=== PATIENT | male | born 1955 | race Caucasian/White ===

== ENCOUNTER 2016-07-19 11:10 | Inpatient (IN) | payer OTHER ==
[~2016-07-19 11:10] MED LIST: INSULIN LISPRO (humaLOG) 300 UNIT/3 ML VIAL SQ ONE
[2016-07-19] MEDS ORDERED: methylPREDNISolone SOD SUCCI 125 MG/2 ML VIAL IV STA (11:30)
[2016-07-19] MEDS ORDERED: IPRATROPIUM 0.5 MG/2.5 ML NEBU INHALATION STA (11:30)
[2016-07-19] MEDS ORDERED: LEVALBUTEROL NEB 1.25 MG/3 ML AMP INHALATION STA (11:30)
--- NOTE | 2016-07-19 11:41 | ED ---
General Adult HPI - General Chief complaint: Shortness of Breath Stated complaint: Difficulty Breathing Time Seen by Provider: 07/19/16 11:15 Source: EMS, RN notes reviewed Mode of arrival: EMS Limitations: no limitations - History of Present Illness Initial comments: This is a 61-year-old male presents emergency department with past medical history significant for COPD. Patient states he was diagnosed with pneumonia a few weeks ago he has been treated for at home and he is no longer on any antibiotics. Patient states this morning he started having difficulty breathing coughing quite a bit. Patient states she can hear himself wheezing and he believes is an exacerbation of his COPD. Patient denies any chest pain or palpitations. Patient denies any fever or chills. Patient denies any lightheadedness dizziness or near syncopal episode. Patient denies headache patient denies any numbness weakness. Patient denies abdominal pain patient denies nausea vomiting diarrhea per patient denies any back pain. Patient denies dysuria hematuria urinary frequency. Patient denies any recent injury or trauma. - Related Data Home Medications Medication Instructions Recorded Confirmed ALPRAZolam [Xanax] 2 mg PO HS 10/19/14 07/19/16 Omeprazole [PriLOSEC] 20 mg PO AC-BID 10/19/14 07/19/16 guaiFENesin [GuaiFENesin] 800 mg PO TID 10/19/14 07/19/16 hydrOXYzine PAMOATE [Hydroxyzine 100 mg PO HS 10/19/14 07/19/16 Pamoate] traMADol HCL [Ultram] 50 mg PO TID PRN 10/19/14 07/19/16 Doxepin HCl [SINEquan] 50 mg PO HS 07/19/16 07/19/16 Folic Acid 1 mg PO DAILY 07/19/16 07/19/16 PARoxetine HCL [Paxil] 20 mg PO HS 07/19/16 07/19/16 predniSONE 5 mg PO DAILY 07/19/16 07/19/16 Allergies Allergy/AdvReac Type Severity Reaction Status Date / Time albuterol Allergy Swelling Verified 07/19/16 11:53 budesonide [From Symbicort] Allergy Swelling Verified 07/19/16 11:53 formoterol [From Symbicort] Allergy Swelling Verified 07/19/16 11:53 heparin Allergy Swelling Verified 07/19/16 11:53 Review of Systems ROS Statement: Those systems with pertinent positive or pertinent negative responses have been documented in the HPI. ROS Other: All systems not noted in ROS Statement are negative. Past Medical History Past Medical History: Asthma, COPD Additional Past Medical History / Comment(s): Bowel problems, diverticulitis History of Any Multi-Drug Resistant Organisms: MRSA Past Surgical History: Adenoidectomy, Bowel Resection, Hernia Repair Past Psychological History: No Psychological Hx Reported Smoking Status: Former smoker Past Alcohol Use History: Rare Past Drug Use History: None Reported General Exam - General Exam Comments Initial Comments: GENERAL: Patient is well-developed and well-nourished. Patient is nontoxic and well- hydrated and is in mild distress. ENT: Neck is soft and supple. No significant lymphadenopathy is noted. Oropharynx is clear. Moist mucous membranes. Neck has full range of motion without eliciting any pain. EYES: The sclera were anicteric and conjunctiva were pink and moist. Extraocular movements were intact and pupils were equal round and reactive to light. Eyelids were unremarkable. PULMONARY: Patient has crackles on the right base and very wheezing. CARDIOVASCULAR: There is a regular rate and rhythm without any murmurs gallops or rubs. ABDOMEN: Soft and nontender with normal bowel sounds. No palpable organomegaly was noted. There is no palpable pulsatile mass. SKIN: Skin is clear with no lesions or rashes and otherwise unremarkable. NEUROLOGIC: Patient is alert and oriented x3. Cranial nerves II through XII are grossly intact. Motor and sensory are also intact. Normal speech, volume and content. Symmetrical smile. MUSCULOSKELETAL: Normal extremities with adequate strength and full range of motion. No lower extremity swelling or edema. No calf tenderness. LYMPHATICS: No significant lymphadenopathy is noted PSYCHIATRIC: Normal psychiatric evaluation. Normal interpersonal interactions appears functionally intact in deals appropriately with others. No signs of depression. No signs of anxiety. Limitations: no limitations Course Vital Signs 07/19/16 07/19/16 07/19/16 11:13 11:32 11:47 Temperature 98.5 F Pulse Rate 103 H 96 Respiratory 18 18 18 Rate Blood Pressure 114/70 O2 Sat by Pulse 96 Oximetry 07/19/16 07/19/16 07/19/16 11:56 12:27 13:10 Temperature Pulse Rate 100 102 H 93 Respiratory 18 18 18 Rate Blood Pressure 111/71 112/65 O2 Sat by Pulse 97 96 Oximetry 07/19/16 13:35 Temperature Pulse Rate 86 Respiratory 18 Rate Blood Pressure 169/83 O2 Sat by Pulse 98 Oximetry Medical Decision Making - Medical Decision Making EKG shows sinus tachycardia with occasional PACs at 102 bpm AR interval 138 QRS is 90 QT interval 320 QTC is 419. Patient's EKG shows no ST segment elevation or depression or T-wave abdomen is noted. Patient's chest x-ray shows a right lower lobe pneumonia. I started patient on Levaquin. I gave the patient a breathing treatments and steroids his breathing did improve but he continued to wheeze I brought the patient in for admission. I spoke with Dr. Dumont when he accepted the patient I wrote orders and I continue the antibiotics and breathing treatments and steroids on the floor - Lab Data Result diagrams: 07/19/16 11:25 07/19/16 11:25 Lab Results 07/19/16 07/19/16 07/19/16 Range/Units 11:25 11:25 11:25 WBC 13.6 H (3.8-10.6) k/uL RBC 4.69 (4.30-5.90) m/uL Hgb 14.3 (13.0-17.5) gm/dL Hct 43.5 (39.0-53.0) % MCV 92.7 (80.0-100.0) fL MCH 30.6 (25.0-35.0) pg MCHC 33.0 (31.0-37.0) g/dL RDW 15.2 (11.5-15.5) % Plt Count 223 (150-450) k/uL Neutrophils % 90 % Lymphocytes % 5 % Monocytes % 3 % Eosinophils % 1 % Basophils % 1 % Neutrophils # 12.2 H (1.3-7.7) k/uL Lymphocytes # 0.6 L (1.0-4.8) k/uL Monocytes # 0.4 (0-1.0) k/uL Eosinophils # 0.2 (0-0.7) k/uL Basophils # 0.1 (0-0.2) k/uL PT (9.0-12.0) sec INR (<1.1) APTT (22.0-30.0) sec Sodium 139 (137-145) mmol/L Potassium 3.9 (3.5-5.1) mmol/L Chloride 109 H (98-107) mmol/L Carbon Dioxide 22 (22-30) mmol/L Anion Gap 8 mmol/L BUN 11 (9-20) mg/dL Creatinine 0.74 (0.66-1.25) mg/dL Est GFR (MDRD) Af Amer >60 (>60 ml/min/1.73 sqM) Est GFR (MDRD) Non-Af >60 (>60 ml/min/1.73 sqM) Glucose 110 H (74-99) mg/dL Calcium 8.1 L (8.4-10.2) mg/dL Magnesium 1.7 (1.6-2.3) mg/dL Total Bilirubin 0.5 (0.2-1.3) mg/dL AST 24 (17-59) U/L ALT 33 (21-72) U/L Alkaline Phosphatase 79 (38-126) U/L Total Creatine Kinase 124 (55-170) U/L CK-MB (CK-2) 1.7 (0.0-2.4) ng/mL CK-MB (CK-2) Rel Index 1.4 Troponin I <0.012 (0.000-0.034) ng/mL NT-Pro-B Natriuret Pep pg/mL Total Protein 5.7 L (6.3-8.2) g/dL Albumin 2.9 L (3.5-5.0) g/dL 07/19/16 07/19/16 Range/Units 11:25 11:25 WBC (3.8-10.6) k/uL RBC (4.30-5.90) m/uL Hgb (13.0-17.5) gm/dL Hct (39.0-53.0) % MCV (80.0-100.0) fL MCH (25.0-35.0) pg MCHC (31.0-37.0) g/dL RDW (11.5-15.5) % Plt Count (150-450) k/uL Neutrophils % % Lymphocytes % % Monocytes % % Eosinophils % % Basophils % % Neutrophils # (1.3-7.7) k/uL Lymphocytes # (1.0-4.8) k/uL Monocytes # (0-1.0) k/uL Eosinophils # (0-0.7) k/uL Basophils # (0-0.2) k/uL PT 10.2 (9.0-12.0) sec INR 1.0 (<1.1) APTT 22.5 (22.0-30.0) sec Sodium (137-145) mmol/L Potassium (3.5-5.1) mmol/L Chloride (98-107) mmol/L Carbon Dioxide (22-30) mmol/L Anion Gap mmol/L BUN (9-20) mg/dL Creatinine (0.66-1.25) mg/dL Est GFR (MDRD) Af Amer (>60 ml/min/1.73 sqM) Est GFR (MDRD) Non-Af (>60 ml/min/1.73 sqM) Glucose (74-99) mg/dL Calcium (8.4-10.2) mg/dL Magnesium (1.6-2.3) mg/dL Total Bilirubin (0.2-1.3) mg/dL AST (17-59) U/L ALT (21-72) U/L Alkaline Phosphatase (38-126) U/L Total Creatine Kinase (55-170) U/L CK-MB (CK-2) (0.0-2.4) ng/mL CK-MB (CK-2) Rel Index Troponin I (0.000-0.034) ng/mL NT-Pro-B Natriuret Pep 340 pg/mL Total Protein (6.3-8.2) g/dL Albumin (3.5-5.0) g/dL Critical Care Time Critical Care Time: Yes Total Critical Care Time: 35 Disposition Clinical Impression: Pneumonia, COPD with acute exacerbation Disposition: ADMITTED IP TO THIS [facility] Time of Disposition: 13:59
[2016-07-19 11:49] LABS: Basophils # (A) 0.1 k/uL (0-0.2); Basophils % (A) 1 %; CH 30.6; CHCM 33.1; Eosinophils # (A) 0.2 k/uL (0-0.7); Eosinophils % (A) 1 %; HCT 43.5 % (39.0-53.0); HDW 2.62; HGB 14.3 gm/dL (13.0-17.5); Luc # (Auto) 0.08; Luc % (Auto) 1; Lymphocytes # (A) 0.6 k/uL (1.0-4.8); Lymphocytes % (A) 5 %; MCH 30.6 pg (25.0-35.0); MCV 92.7 fL (80.0-100.0); Mean Platelet Volume 6.4; Monocytes # (A) 0.4 k/uL (0-1.0); Monocytes % (A) 3 %; Neutrophils # (A) 12.2 k/uL (1.3-7.7); Neutrophils % (A) 90 %; RBC 4.69 m/uL (4.30-5.90); RDW 15.2 % (11.5-15.5); WBC 13.6 k/uL (3.8-10.6); WBC (Perox) 13.01
[2016-07-19 12:07] LABS: ALT 33 U/L (21-72); AST 24 U/L (17-59); Alkaline Phosphatase 79 U/L (38-126); Anion Gap 8 mmol/L; Blood Urea Nitrogen 11 mg/dL (9-20); Calcium 8.1 mg/dL (8.4-10.2); Carbon Dioxide 22 mmol/L (22-30); Chloride 109 mmol/L (98-107); Glucose 110 mg/dL (74-99); Magnesium 1.7 mg/dL (1.6-2.3); Non-African American GFR(MDRD) >60 (>60 ml/min/1.73 sqM); Potassium 3.9 mmol/L (3.5-5.1); Sodium 139 mmol/L (137-145); Total Bilirubin 0.5 mg/dL (0.2-1.3); Total Protein 5.7 g/dL (6.3-8.2)
[2016-07-19 12:08] LABS: Creatine Kinase 124 U/L (55-170)
[2016-07-19 12:14] LABS: Partial Thromboplastin Time 22.5 sec (22.0-30.0); Prothrombin Time 10.2 sec (9.0-12.0)
[2016-07-19 12:19] LABS: Creatine Kinase MB 1.7 ng/mL (0.0-2.4); Troponin I <0.012 ng/mL (0.000-0.034)
--- NOTE | 2016-07-19 12:30 | XR ---
EXAMINATION TYPE: XR chest 2V DATE OF EXAM: 07/19/2016 12:15 PM HISTORY: difficulty breathing. REFERENCE: NONE. FINDINGS: Lung volumes are mildly prominent. There are increased interstitial markings. I suspect thi s is on the basis of fibrosis. There is some scarring or atelectasis at the left lung base. Pleural s paces are clear. Heart size is normal. IMPRESSION: 1. COPD. 2. I SUSPECT SOME DEGREE OF PULMONARY FIBROSIS. 3. SCARRING VERSUS ATELECTASIS, LEFT LUNG BASE.
[2016-07-19] MEDS ORDERED: LEVOFLOXACIN 750MG-D5W PMX 750 MG in DEXTROSE/WATER 1 150ML.BAG IVPB STA (13:24)
[2016-07-19] MEDS ORDERED: LEVALBUTEROL NEB 1.25 MG/3 ML AMP INHALATION PRN (14:00)
[2016-07-19] MEDS ORDERED: PNEUMONIA PROTOCOL UTILIZED 1 EACH MISC PO PRN (14:00)
[2016-07-19] MEDS ORDERED: traMADol 50 MG TAB PO PRN (15:27)
[2016-07-19] MEDS: IPRATROPIUM 0.5 MG/2.5 ML NEBU INHALATION PRN ×3 (16:10→23:51)
[2016-07-19] MEDS: LEVALBUTEROL NEB (CONC) 1.25 MG/0.5 ML AMP INHALATION PRN ×3 (16:10→23:51)
[2016-07-19 17:04] LABS: Glucose,Whole Blood 207 mg/dL (75-99)
[2016-07-19] MEDS: methylPREDNISolone SOD SUCCI 125 MG/2 ML VIAL IV SCH ×2 (17:07→23:27)
[2016-07-19] MEDS: INSULIN LISPRO (humaLOG) 300 UNIT/3 ML VIAL SQ SCH ×2 (17:07→21:26)
[2016-07-19] MEDS: guaiFENesin 600 MG TABLET.ER PO SCH ×2 (17:07→21:22)
[2016-07-19] MEDS: PANTOPRAZOLE 40 MG TABLET PO SCH (17:07)
--- NOTE | 2016-07-19 20:49 | HP ---
DATE OF ADMISSION: 07/19/2016 CHIEF COMPLAINT: Shortness of breath and COPD. HISTORY OF PRESENT ILLNESS: This is the first admission for this 61-year-old white male who normally follows with a pulmonology physician in [place]. He started to have progressively more shortness of breath and came to the emergency room. He is not very good historian. He thought he only had an exacerbation of his COPD. It was determined that he had pneumonitis and he was admitted. REVIEW OF SYSTEMS: He has had no headaches, neurologic problems, hemoptysis, purulent sputum production, heart disease, murmurs, rheumatic fever, orthopnea, PND, abdominal pain, nausea, vomiting, hematemesis, melena, hematochezia, jaundice, hematuria, frequency, urgency, renal failure, diabetes, etc. Past medical history, family history, and personal and social histories are unremarkable. He has had surgery for diverticulitis which resulted in a colostomy which was later taken down. He has had an appendectomy. He has had a right inguinal hernia. He does not smoke now but did until 2008. He is NOT ALLERGIC TO ANY MEDICATION. Medications that he is on include: 1. Atrovent and albuterol updrafts. 2. Prednisone. 3. Levaquin. 4. Xanax. 5. Aspirin. 6. Doxepin. 7. Vistaril. 8. Paxil. 9. Spiriva. PHYSICAL EXAMINATION: Blood pressure is 148/88 with a pulse of 92, respirations of 40, and he is afebrile. In general he appeared to be chronically ill and very dyspneic. Skin was dry. Head, ears, eyes, nose, mouth and throat were normal. Neck veins were not distended. Chest demonstrated increased AP diameter with poor breath sounds throughout. There was wheezing on expiration and inspiration and there were scattered rales and rhonchi. The cardiac exam demonstrated sinus tachycardia with no murmurs or extra sounds. ABDOMEN: Soft and nontender. Extremities were normal. Neurologically he was intact. IMPRESSION: 1. Bronchopneumonia. 2. Exacerbation of chronic obstructive pulmonary disease. PLAN: 1. Bed rest. 2. IV fluids. 3. Updrafts. 4. IV inhaled steroids. 5. IV antibiotics.
[2016-07-19 21:01] LABS: Glucose,Whole Blood 204 mg/dL (75-99)
[2016-07-19] MEDS: DOXEPIN 25 MG CAP PO SCH (21:22)
[2016-07-19] MEDS: PARoxetine 20 MG TAB PO SCH (21:22)
[2016-07-19] MEDS: ALPRAZolam 0.5 MG TAB PO SCH (21:26)
[2016-07-19] MEDS: hydrOXYzine PAMOATE 25 MG CAP PO SCH (21:29)
[2016-07-20] MEDS: methylPREDNISolone SOD SUCCI 125 MG/2 ML VIAL IV SCH ×4 (06:24→23:21)
[2016-07-20 07:34] LABS: Glucose,Whole Blood 122 mg/dL (75-99)
[2016-07-20] MEDS: INSULIN LISPRO (humaLOG) 300 UNIT/3 ML VIAL SQ SCH ×4 (07:55→21:37)
[2016-07-20] MEDS: IPRATROPIUM 0.5 MG/2.5 ML NEBU INHALATION PRN ×4 (07:58→23:38)
[2016-07-20] MEDS: guaiFENesin 600 MG TABLET.ER PO SCH ×3 (07:58→21:36)
[2016-07-20] MEDS: PANTOPRAZOLE 40 MG TABLET PO SCH ×2 (07:58→17:12)
--- NOTE | 2016-07-20 08:32 | XR ---
EXAMINATION TYPE: XR chest 2V DATE OF EXAM: 07/20/2016 6:43 AM COMPARISON: Prior chest x-ray 19 Jul 2016 HISTORY: Pneumonia TECHNIQUE: Frontal and lateral views of the chest are obtained. FINDINGS: Similar findings to prior exam. Interstitial changes are again noted. Cardiomediastinal si lhouette, pulmonary vascularity and marley are not significantly changed. There is no pneumothorax or p leural effusion. Difficult to exclude some basilar airspace disease. IMPRESSION: Similar findings to prior exam. Interstitial lung disease. Correlate for possible pneumo debbi. Follow-up as indicated.
[2016-07-20] MEDS ORDERED: IBUPROFEN 800 MG TAB PO PRN (08:54)
[2016-07-20 12:00] LABS: Glucose,Whole Blood 111 mg/dL (75-99)
[2016-07-20] MEDS: FOLIC ACID 1 MG TAB PO SCH (12:08)
[2016-07-20] MEDS: LEVOFLOXACIN 750MG-D5W PMX 750 MG in DEXTROSE/WATER 1 150ML.BAG IVPB SCH (12:08)
--- NOTE | 2016-07-20 13:17 | PN ---
CHIEF COMPLAINT: COPD and pneumonitis. HISTORY OF PRESENT ILLNESS: This gentleman is feeling better. He is less short of breath and is having no chest pain. He has had no fevers or chills. PHYSICAL EXAM: He still has rales and rhonchi with inspiratory and expiratory wheezing throughout. Cardiac exam demonstrates tachycardia. IMPRESSION: 1. Bilateral bronchopneumonia. 2. Exacerbation of chronic obstructive pulmonary disease. PLAN: Continue on current treatment regimen.
[2016-07-20 17:17] LABS: Glucose,Whole Blood 125 mg/dL (75-99)
[2016-07-20 20:54] LABS: Glucose,Whole Blood 114 mg/dL (75-99)
[2016-07-20] MEDS: ALPRAZolam 0.5 MG TAB PO SCH (21:36)
[2016-07-20] MEDS: hydrOXYzine PAMOATE 25 MG CAP PO SCH (21:36)
[2016-07-20] MEDS: DOXEPIN 25 MG CAP PO SCH (21:36)
[2016-07-20] MEDS: PARoxetine 20 MG TAB PO SCH (21:37)
[2016-07-20] MEDS: LEVALBUTEROL NEB (CONC) 1.25 MG/0.5 ML AMP INHALATION PRN (23:38)
[2016-07-21] MEDS: methylPREDNISolone SOD SUCCI 125 MG/2 ML VIAL IV SCH ×2 (06:26→12:26)
[2016-07-21 07:25] LABS: Glucose,Whole Blood 108 mg/dL (75-99)
[2016-07-21 07:33] VITALS: BP 130/85; RESP 20; TEMP 96.9
[2016-07-21] MEDS: INSULIN LISPRO (humaLOG) 300 UNIT/3 ML VIAL SQ SCH ×2 (07:35→12:18)
[2016-07-21] MEDS: guaiFENesin 600 MG TABLET.ER PO SCH (07:36)
[2016-07-21] MEDS: PANTOPRAZOLE 40 MG TABLET PO SCH (07:36)
[2016-07-21] MEDS: IPRATROPIUM 0.5 MG/2.5 ML NEBU INHALATION PRN (11:28)
[2016-07-21] MEDS: LEVALBUTEROL NEB (CONC) 1.25 MG/0.5 ML AMP INHALATION PRN (11:28)
[2016-07-21 11:53] VITALS: PULSE 88
[2016-07-21 11:53] LABS: Glucose,Whole Blood 92 mg/dL (75-99)
[2016-07-21] MEDS: LEVOFLOXACIN 750MG-D5W PMX 750 MG in DEXTROSE/WATER 1 150ML.BAG IVPB SCH (12:26)
[2016-07-21] MEDS: FOLIC ACID 1 MG TAB PO SCH (12:26)
--- NOTE | 2016-07-21 20:38 | DS ---
DATE OF ADMISSION: 07/19/2016 DATE OF DISCHARGE: 07/21/2016 CHIEF COMPLAINT: Shortness of breath. HISTORY OF PRESENT ILLNESS AND PHYSICAL EXAMINATION: The details of this man's history and physical can be found in the initial work-up. LABORATORY STUDIES: While he was in hospital, he had laboratory studies, the details of which can be found in the laboratory section of her chart. COURSE IN THE HOSPITAL: After admission, he was placed on bed rest, started on intravenous fluids and updrafts with IV and inhaled steroids, as well as antibiotics. He improved, but was not completely clear on the morning of the seventh. He was anxious to be discharged and he stated that he had multiple medications at home from his own doctor ( ). He had Prednisone taper, antibiotics, etc. The patient was released and he will follow-up with his own physician. FINAL DIAGNOSES: 1. Exacerbation of chronic obstructive pulmonary disease. 2. Bilateral bronchopneumonia. Operations: None. CONSULTATIONS: None. He is improved.
== END 2016-07-21 14:44 | disposition home or self-care (01) | DRG 190 ==
LOC: EC 11:10 → 4MS4W 14:02
PROVIDERS: ADMIT Family Medicine; ATTEND Family Medicine
DX: J44.0 Chronic obstructive pulmonary disease with (acute) lower respiratory infection (principal); J18.0 Bronchopneumonia, unspecified organism; R00.0 Tachycardia, unspecified; J44.1 Chronic obstructive pulmonary disease with (acute) exacerbation; Z79.899 Other long term (current) drug therapy; Z90.49 Acquired absence of other specified parts of digestive tract; Z87.891 Personal history of nicotine dependence; Z86.14 Personal history of Methicillin resistant Staphylococcus aureus infection; Z87.01 Personal history of pneumonia (recurrent); Z87.19 Personal history of other diseases of the digestive system; Z86.19 Personal history of other infectious and parasitic diseases; Z88.8 Allergy status to other drugs, medicaments and biological substances; Z79.2 Long term (current) use of antibiotics; Z79.82 Long term (current) use of aspirin; Z79.51 Long term (current) use of inhaled steroids; Z79.52 Long term (current) use of systemic steroids
CPT/HCPCS: 36415; 71020; 80053; 82550; 82553; 83735; 83880; 84484; 85025; 85610; 85730; 87040; 87070; 87205; 93005; 94640; 96365; 96366; 96375; 99291